=== PATIENT | male | born 1980 | race Caucasian/White ===

== ENCOUNTER 2021-11-25 11:44 | Emergency (ER) | payer BC, SELFPAY ==
[2021-11-25 11:49] VITALS: BP 170/91; PULSE 66; RESP 16; TEMP 36.7; O2SAT 98; BMI 33.4
--- NOTE | 2021-11-25 11:57 | XR_ITS ---
WS: [id number] PORTABLE CHEST HISTORY: Chest Pain COMPARISON: None available. Lungs are clear and well expanded. No pleural effusion or pneumothorax. Cardiac size: Normal. Mediastinum/Aorta: Normal mediastinum. No osseous abnormality seen. XR/XR chest 1V portable [id number] IMPRESSION: Unremarkable portable chest.
--- NOTE | 2021-11-25 11:57 | ECG_ITS ---
[facility] Test Date: 2021-11-25 Pat Name: Rajiv Bryant Department: Room: Gender: Male Can Line Examiner: : 1980 Requested By: Carlito Leong Order Number: [id number] Covington MD: Aman Hough M.D. Measurements Intervals [place] Rate: 68 P: 13 TN: 140 QRS: -1 QRSD: 100 T: 23 QT: 383 QTc: 410 Interpretive Statements SINUS RHYTHM WITH SINUS ARRHYTHMIA MODERATE VOLTAGE CRITERIA FOR LVH, CONSIDER NORMAL VARIANT [MEETS CRITERIA IN ONE OF: R(aVL), S(V1), R(V5), R(V5/V6)+S(V1)] No previous ECG available for comparison Electronically Signed On 11-25-2021 14:23:36 CDT by Aman Hough M.D. [id number]
--- NOTE | 2021-11-25 12:13 | ED_ITS ---
HPI - Chest Pain General: Chief Complaint: Chest Pain Stated Complaint: chest tightness Time Seen by Provider: 11/25/21 12:12 History of Present Illness: Mr. Bryant is a 41-year-old gentleman without significant past medical history presents to the emergency department for evaluation of chest discomfort. He reports the past few nights having chest pain in the middle of his chest that woke him up from sleep. This resolved spontaneously. Earlier today he was lifting some gas cans and had onset of left anterior chest pain with radiation through the neck and back. This was a dull heaviness and improved with rest. Mild associated nausea but no other typical cardiac features. Denies history of frequent. No other specific changes in health, exacerbating, or alleviating factors identified. Patient does report a family history of his father requiring LVAD in his 40s. Onset (ago): hour(s) Timing of current episode: now resolved Onset: during exertion Pain location: right chest Pain radiation: back, neck and right shoulder Severity: moderate Quality: heaviness and dull Relieving factors: rest Associated symptoms: Reports nausea Review of Systems General: Reports: 10 or more systems reviewed and unremarkable except in HPI and below GI: Reports: nausea PFS ED PFSH: Medical History (Updated 12/03/21 @ 00:01 by ) No significant past medical history Surgical History (Updated 11/25/21 @ 12:29 by Carlito Leong MD) No significant past surgical history Family History (Updated 11/25/21 @ 12:29 by Carlito Leong MD) Other Family history of premature coronary artery disease Social History (Updated 11/25/21 @ 12:29 by Carlito Leong MD) Smoking and tobacco status: never smoked Physical Exam Const: COMMON NORMALS: alert GENERAL APPEARANCE: cooperative and well developed HENMT: COMMON NORMALS: normocephalic and atraumatic HEAD & SCALP: normocephalic and atraumatic THROAT: posterior oropharynx normal Eye: COMMON NORMALS: conjunctivae normal CONJUNCTIVA: Yes conjunctivae normal SCLERA: sclerae normal Neck/C-Spine: COMMON NORMALS: supple GENERAL: Yes trachea midline Resp: COMMON NORMALS: normal respiratory effort and clear to auscultation bi laterally EFFORT & INSPECTION: Yes able to speak in complete sentences AUSCULTATION: clear to auscultation bilaterally Cardio: COMMON NORMALS: regular rate and regular rhythm RATE: regular rate RHYTHM: regular rhythm GI: COMMON NORMALS: Soft to palpation PALPATION: Yes Soft to palpation and No Tenderness to palpation present (GI) Extremity: GENERAL: Yes normal exam except as noted and No edema Neuro: COMMON NORMALS: moves all extremities SENSORIUM/ORIENTATION: Yes alert and No Orientation impaired Psych: COMMON NORMALS: mental status grossly normal and Normal thought process present THOUGHT PROCESS: Normal thought process present Course ED course: - Patient was seen and evaluated by me at bedside - Patient placed on cardiac monitors, IV access obtained - Initial evaluation notable for exam as above. - Labs and xrays personally interpreted by me. EKG shows a sinus rhythm with nonspecific ST segment abnormalities, no STEMI. - Fluids, aspirin, and GI cocktail given - Labs notable for no significant hematologic or metabolic abnormality. 2-hour delta troponin is negative. - Imaging notable for no lobar consolidation or pneumothorax - Upon serial reexamination after treatment the patient was improved - Based on patient history, evaluation, and testing as interpreted the most likely cause of the patient's condition is chest pain - The results of ED evaluation were discussed with the patient including prescriptions and/or symptomatic cares (if applicable) including appropriate and responsible use, followup plan, and return precautions. The patient verbalized understanding and felt safe for discharge. - Patient discharged in satisfactory condition. Note: Click bubbles or prepopulated licona in note writing are used for assistance with data collection and billing and are inherently more limited than narrative and other text portions of this note. Please use narrative for additional clinical history and defer to narrative/free test for any case of contradictory information. If information appears in only free text or click bubble it should be considered present or absent as reported. Please contact note comic book writer for clarifications of clinical information or contradictory information. MDM is a brief summary, contradictory or erroneous seeming information should be clarified and full note should be reviewed. Vital Signs: Vital signs: Vital Signs Temperature 98.1 F 11/25/21 11:49 Pulse Rate 66 11/25/21 15:23 Respiratory Rate 21 H 11/25/21 15:23 Blood Pressure 146/84 11/25/21 15:23 Pulse Oximetry 95 11/25/21 15:23 Oxygen Delivery Ma thod 11/25/21 11:49 MDM - Chest Pain Medical Decision Making 41-year-old gentleman presenting with chest pain. Negative delta troponin. No clear explanation identified on ED evaluation. Does require cardiology follow- up given strong family history. Satisfactory for outpatient management. Medical Records I reviewed the patient's medical records. Lab Data I reviewed the patient's lab results. : 11/25/21 12:20 11/25/21 12:20 Radiology Impressions Chest X-Ray 11/25/21 11:57 IMPRESSION: Unremarkable portable chest. Laboratory Results WBC 7.9 10^3/uL (4.0-10.0) 11/25/21 12:20 RBC 5.29 10^6/uL (4.1-5.3) 11/25/21 12:20 Hgb 15.1 g/dL (11.7-16.6) 11/25/21 12:20 Hct 45.0 % (42.0-52.0) 11/25/21 12:20 MCV 85.1 fl (80-94) 11/25/21 12:20 MCH 28.5 pg (28.0-34.0) 11/25/21 12:20 MCHC 33.6 g/dL (30.0-36.0) 11/25/21 12:20 RDW 12.8 % (12.1-15.1) 11/25/21 12:20 Plt Count 328 10^3/cmm (130-400) 11/25/21 12:20 MPV 8.4 fL (7.4-10.4) 11/25/21 12:20 Neut % (Auto) 73.2 % 11/25/21 12:20 Lymph % (Auto) 19.5 % 11/25/21 12:20 [place] % (Auto) 5.7 % 11/25/21 12:20 Eos % (Auto) 0.8 % 11/25/21 12:20 Baso % (Auto) 0.4 % 11/25/21 12:20 Neut # (Auto) 5.80 10^3/uL (1.8-7.7) 11/25/21 12:20 Lymph # (Auto) 1.5 10^3/uL (0.8-4.8) 11/25/21 12:20 [place] # (Auto) 0.5 10^3/uL (0.2-0.9) 11/25/21 12:20 Eos # (Auto) 0.1 10^3/uL (0.0-0.8) 11/25/21 12:20 Baso # (Auto) 0.0 10^3/uL (0.0-0.1) 11/25/21 12:20 Nucleated RBC % (auto) 0 % 11/25/21 12:20 Nucleated RBCs # 0.0 /100WBC 11/25/21 12:20 Sodium 139 mmol/L (136-145) 11/25/21 12:20 Potassium 4.0 mmol/L (3.5-5.1) 11/25/21 12:20 Chloride 101 mmol/L (98-107) 11/25/21 12:20 Carbon Dioxide 25 mmol/L (22-29) 11/25/21 12:20 Anion Gap 17.0 (5-19) 11/25/21 12:20 BUN 13 mg/dL (6-20) 11/25/21 12:20 Creatinine 0.8 mg/dL (0.7-1.2) 11/25/21 12:20 GFR Calculation 106.5 mL/min (90-130) 11/25/21 12:20 Glucose 96 mg/dL (65-115) 11/25/21 12:20 Calculated Osmolality 288 mOsm/kg (285-295) 11/25/21 12:20 Calcium 9.5 mg/dL (8.5-10.5) 11/25/21 12:20 Magnesium 2.1 mg/dL (1.7-2.3) 11/25/21 12:20 Total Bilirubin 0.3 mg/dL (0.15-1.2) 11/25/21 12:20 AST 20 U/L (0-40) 11/25/21 12:20 ALT 25 U/L (0-41) 11/25/21 12:20 Alkaline Phosphatase 76 U/L (40-130) 11/25/21 12:20 Troponin T Baseline 7 ng/L (0-15) 11/25/21 12:20 Troponin T 120 Minute 7.65 ng/L (0-15) 11/25/21 14:28 Delta Troponin T 0.65 ABS# (0-10) 11/25/21 14:28 Total Protein 7.6 g/dL (6.6-8.7) 11/25/21 12:20 Albumin 4.4 g/dL (3.5-5.2) 11/25/21 12:20 Globulin 3.2 g/dL (1.3-4.6) 11/25/21 12:20 TSH 1.62 uIU/mL (0.27-4.20) 11/25/21 12:20 Discharge Plan Discharge Patient Disposition: Home Clinical Impression: Chest pain Condition: Stable Prescriptions: No Action naproxen 375 mg Tablet 375 mg PO BID PRN (Reason: Pain) montelukast 10 mg tablet 10 mg PO DAILY PRN (Reason: Allergy Symptoms) Discharge Orders: Discharge ED (Routine); Ordered 11/25/21 Ordered By: Carlito Leong Referrals: Brittanie Land DO [Primary Care Provider] - Discharge Diet: Usual diet Discharge Activity: Increase activity as tolerated Patient Instructions: Chest Pain (ED), Heart Palpitations (ED) Activity Restrictions/Additional Instructions: Thank you for visiting the emergency department. You were seen and evaluated for chest pain and abnormal awareness of heartbeat. The exact cause of the symptoms is unclear though based on risk factors does not require further inpatient testing at this time. I will message case management for follow-up with cardiology given your family history. Please follow-up with a primary care provider. Return to the emergency department for worsening symptoms or anything else that you are concerned about a feel needs emergency department evaluation. Coding Level of Care Code ED Jockey'S Agent for Stephan Lehman Exam Comprehensive
--- NOTE | 2021-11-25 12:28 | PC.NURSE ---
Patient on continuous cardiac and SP02 monitor
[2021-11-25 12:29] LABS: Basophils % 0.4 %; Eosinophils # 0.1 10^3/uL (0.0-0.8); Eosinophils % 0.8 %; Hemoglobin 15.1 g/dL (11.7-16.6); Lymphocytes # 1.5 10^3/uL (0.8-4.8); Lymphocytes % 19.5 %; Mean Corpuscular HGB Conc 33.6 g/dL (30.0-36.0); Mean Corpuscular Hemoglobin 28.5 pg (28.0-34.0); Mean Corpuscular Volume 85.1 fl (80-94); Mean Platelet Volume 8.4 fL (7.4-10.4); Monocytes # 0.5 10^3/uL (0.2-0.9); Monocytes % 5.7 %; Neutrophils % 73.2 %; Nucleated Red Blood Cells % 0 %; Platelet Count 328 10^3/cmm (130-400); Red Blood Count 5.29 10^6/uL (4.1-5.3); Red Cell Distribution Width 12.8 % (12.1-15.1); White Blood Count 7.9 10^3/uL (4.0-10.0)
[2021-11-25 12:30] VITALS: BP 170/91; PULSE 66; RESP 16; O2SAT 98
[2021-11-25] MEDS: lidocaine 2% viscous 15 ML, aluminum-mag hydrox-simethicon 30 ML, sucralfate oral liq 1 GM PO (12:35)
[2021-11-25] MEDS: aspirin 81 mg Chew Tablet 324 MG PO (12:39)
[2021-11-25 12:55] LABS: Troponin(5th) Baseline 7 ng/L (0-15)
[2021-11-25 13:04] LABS: Alanine Aminotransferase 25 U/L (0-41); Albumin Level 4.4 g/dL (3.5-5.2); Alkaline Phosphatase 76 U/L (40-130); Aspartate Amino Transferase 20 U/L (0-40); Blood Urea Nitrogen 13 mg/dL (6-20); Calcium 9.5 mg/dL (8.5-10.5); Carbon Dioxide 25 mmol/L (22-29); Chloride 101 mmol/L (98-107); Creatinine Clr Calc Pharmacy 139.1431; Globulin 3.2 g/dL (1.3-4.6); Glomerular Filtration Rate 106.5 mL/min (90-130); Glucose 96 mg/dL (65-115); Magnesium 2.1 mg/dL (1.7-2.3); Osmolality Calculated 288 mOsm/kg (285-295); Sodium 139 mmol/L (136-145); Thyroid Stimulating Hormone 1.62 uIU/mL (0.27-4.20); Total Bilirubin 0.3 mg/dL (0.15-1.2); Total Protein 7.6 g/dL (6.6-8.7)
[2021-11-25] MEDS: sodium chloride 0.9% 1,000 ML 999 ML IV (13:22)
--- NOTE | 2021-11-25 13:57 | ECG_ITS ---
[facility] Test Date: 2021-11-25 Pat Name: Rajiv Bryant Department: Room: Gender: Male Release Of Information Specialist: : 1980 Requested By: Carlito Leong Order Number: [id number] Adria MD: Aman Hough M.D. Measurements Intervals [place] Rate: 54 P: 27 TX: 139 QRS: 15 QRSD: 116 T: 43 QT: 431 QTc: 411 Interpretive Statements SINUS BRADYCARDIA MODERATE INTRAVENTRICULAR CONDUCTION DELAY [110+ ms QRS DURATION] Compared to ECG 11/25/2021 11:54:01 Intraventricular conduction delay now present Sinus rhythm no longer present Sinus arrhythmia no longer present Electronically Signed On 11-25-2021 14:37:37 CDT by Aman Hough M.D. [id number]
[2021-11-25 14:58] LABS: Troponin 5 2HR 7.65 ng/L (0-15)
[2021-11-25 15:02] LABS: Troponin 5 2HR Delta 0.65 ABS# (0-10)
[2021-11-25 15:23] VITALS: BP 146/84; PULSE 66; RESP 21; O2SAT 95
--- NOTE | 2021-11-25 16:51 | DCPLANNER ---
Addendum entered by Bonnie Blank 03/08/22 11:54: Patient has a follow up appointment scheduled with heart [facility] - patient did attend appointment. Addendum entered by Bonnie Blank 11/30/21 08:28: Patient has a follow up appointment scheduled for Sunday, February 15, 2022 at 10:[address] Leone at [facility]. Clinic will call patient with appointment information. Original Note: manager eligibility had message to schedule a follow up appointment for patient with cardiology. manager eligibility sent patients information to the front office staff at [facility]. Patients information will be printed and reviewed. Clinic will call patient with appointment information.
== END 2021-11-25 15:24 | disposition home or self-care (01) ==
PROVIDERS: Emergency Provider Emergency Medicine; PCP Obstetrics & Gynecology
DX: R07.9 Chest pain, unspecified (principal)
CPT/HCPCS: 71045; 80053; 83735; 84443; 84484; 85025; 93005; 96360; 99285; J7030